=== PATIENT | male | born 1985 ===

== ENCOUNTER 2022-06-11 22:29 | Emergency (ER) | payer SELFPAY ==
[2022-06-11 23:42] VITALS: BP 118/83
--- NOTE | 2022-06-13 08:55 | Electrocardiograph Report ---
[facility] Test Date: 2022-06-11 Test Time: 22:38:10 Pat Name: NEO CHISHOLM Department: Room: Gender: M [employer] Professor: KAYLA : 1985 Requested By: ADRIANNA SCOTT Order Number: [id number] Reading MD: Killian Buchanan Measurements Intervals [place] Rate: 88 P: 81 MT: 148 QRS: 86 QRSD: 89 T: 86 QT: 364 QTc: 440 Interpretive Statements Sinus rhythm Right atrial enlargement RSR' IN V1 OR V2, PROBABLY NORMAL VARIANT Nonspecific T abnrm, anterolateral leads No previous ECG available for comparison Electronically Signed On 06-13-2022 8:55:14 EDT by Killian Buchanan
== END 2022-06-12 03:30 | disposition left against medical advice (07) ==
LOC: ED 22:29
DX: R07.9 Chest pain, unspecified (principal); R10.9 Unspecified abdominal pain; Z53.21 Procedure and treatment not carried out due to patient leaving prior to being seen by health care provider
CPT/HCPCS: 93005